=== PATIENT | male | born 1935 | race Caucasian/White ===

== ENCOUNTER 2019-06-14 12:57 | Inpatient (IN) ==
[2019-06-14 14:56] LABS: Basophils % 0.1 % (0.0-0.8); Eosinophils # 0.1 10*3/uL (0.0-0.87); Eosinophils % 0.9 % (0.00-10.9); Hemoglobin 8.8 GM/DL (14.0-18.0); Immature Granulocytes % 0.6 %; Immature Granulocytes Absolute 0.09 #; Lymphocytes # 0.9 10*3/uL (1.4-4.0); Lymphocytes % 6.5 % (21.2-54.2); Mean Corpuscular HGB Conc 32.6 GM/DL (32-36); Mean Corpuscular Volume 84.4 FL (87-102); Neutrophils % 81.9 % (38.7-73.9); Platelet Count 91 T/CUMM (130-400); Red Cell Distribution Width 14.1 % (9.3-17.3); White Blood Count 14.1 T/CUMM (4-12)
[2019-06-14 15:14] LABS: Albumin 3.5 G/DL (3.4-5.0); Bilirubin,Total 0.6 MG/DL (0.2-1.0); Calcium 8.5 MG/DL (8.5-10.1); Osmolality,Calculated 280.4 MOS/KG (273-304); Total Protein 6.4 G/DL (6.4-8.3)
[2019-06-14] MEDS ORDERED: ALBUTEROL/IPRATROPIUM 3 ML NEB RESP TX PRN (15:23)
[2019-06-14] MEDS ORDERED: ONDANSETRON 4 MG/2 ML VIAL IV PRN (15:23)
[2019-06-14] MEDS ORDERED: HYDROmorphone 2 MG/1 ML VIAL IV PRN (15:23)
[2019-06-14] MEDS: KETOROLAC 10 MG TABLET PO SCH ×2 (17:23→21:17)
[2019-06-14] MEDS: LACTATED RINGERS 1,000 ML IV SCH (17:24)
[2019-06-14 17:51] LABS: Platelet Estimate Decreased
[2019-06-14] MEDS: ALBUTEROL/IPRATROPIUM 3 ML NEB RESP TX SCH (20:47)
[2019-06-14] MEDS: DOCUSATE SODIUM 100 MG CAPSULE PO SCH (21:19)
[2019-06-15] MEDS: ALBUTEROL/IPRATROPIUM 3 ML NEB RESP TX SCH ×4 (02:32→19:30)
[2019-06-15] MEDS: LACTATED RINGERS 1,000 ML IV SCH ×3 (02:43→12:46)
[2019-06-15] MEDS: KETOROLAC 10 MG TABLET PO SCH ×4 (02:48→21:02)
[2019-06-15 06:15] LABS: Basophils % 0.3 % (0.0-0.8); Eosinophils # 0.2 10*3/uL (0.0-0.87); Eosinophils % 2.1 % (0.00-10.9); Hematocrit 24.4 VOL% (42.0-52.0); Hemoglobin 7.7 GM/DL (14.0-18.0); Immature Granulocytes % 0.6 %; Immature Granulocytes Absolute 0.06 #; Lymphocytes # 1.2 10*3/uL (1.4-4.0); Mean Corpuscular HGB Conc 31.6 GM/DL (32-36); Mean Corpuscular Volume 85.3 FL (87-102); Mean Platelet Volume 11.9 FL (9.6-12.0); Platelet Count 80 T/CUMM (130-400); Red Blood Count 2.86 MC/CUMM (3.8-5.5); Red Cell Distribution Width 14.1 % (9.3-17.3); White Blood Count 10.8 T/CUMM (4-12)
[2019-06-15 06:33] LABS: Calcium 8.7 MG/DL (8.5-10.1); Osmolality,Calculated 281.2 MOS/KG (273-304)
[2019-06-15 06:48] LABS: Platelet Estimate Decreased
[2019-06-15 06:51] LABS: Anisocytosis 1+
[2019-06-15] MEDS: DOCUSATE SODIUM 100 MG CAPSULE PO SCH ×2 (09:12→21:03)
[2019-06-15] MEDS ORDERED: MELOXICAM 7.5 MG TABLET PO PRN (12:11)
[2019-06-15] MEDS: traZODone 50 MG TABLET PO SCH (21:02)
[2019-06-15] MEDS: ASPIRIN EC 81 MG TABLET PO SCH (21:03)
[2019-06-15] MEDS: GABAPENTIN 100 MG CAPSULE PO SCH (21:03)
[2019-06-15] MEDS: amLODIPine 5 MG TABLET PO SCH (21:03)
[2019-06-15] MEDS: traMADol 50 MG TABLET PO SCH (21:03)
[2019-06-15] MEDS: MAGNESIUM CHLORIDE 64 MG TABLET PO SCH (21:07)
[2019-06-16] MEDS: ALBUTEROL/IPRATROPIUM 3 ML NEB RESP TX SCH ×4 (00:56→20:05)
[2019-06-16] MEDS: KETOROLAC 10 MG TABLET PO SCH ×4 (03:49→21:54)
[2019-06-16] MEDS: ACETAMINOPHEN 325 MG TABLET PO PRN (05:28)
[2019-06-16 05:38] LABS: Basophils % 0.2 % (0.0-0.8); Eosinophils # 0.1 10*3/uL (0.0-0.87); Hematocrit 22.3 VOL% (42.0-52.0); Hemoglobin 7.2 GM/DL (14.0-18.0); Immature Granulocytes % 0.8 %; Immature Granulocytes Absolute 0.09 #; Lymphocytes # 0.5 10*3/uL (1.4-4.0); Lymphocytes % 4.6 % (21.2-54.2); Mean Corpuscular HGB Conc 32.3 GM/DL (32-36); Mean Corpuscular Volume 84.8 FL (87-102); Mean Platelet Volume 11.3 FL (9.6-12.0); Monocytes % 9.5 % (1.7-12.7); Neutrophils % 83.9 % (38.7-73.9); Platelet Count 85 T/CUMM (130-400); Red Blood Count 2.63 MC/CUMM (3.8-5.5); White Blood Count 10.6 T/CUMM (4-12)
[2019-06-16 07:22] LABS: Band Neutrophils 4 % (0-10); Eosinophils 1 % (0-10); Lymphocytes 4 % (20-55); Platelet Estimate Decreased; Segmented Neutrophils 84 % (50-85); Total Cells Counted 100
[2019-06-16] MEDS ORDERED: SODIUM CHLORIDE 0.9% 1,000 ML IV PRN ×2 (07:22→07:31)
[2019-06-16 07:23] LABS: Anisocytosis Slight
[2019-06-16] MEDS ORDERED: ceFAZolin 1,000 MG in SYRINGE 1 EACH IV ONE (07:23)
[2019-06-16] MEDS ORDERED: BUPIVACAINE MPF 0.25% 30 ML VIAL ONE (08:46)
[2019-06-16] MEDS ORDERED: LIDOCAINE 1%/EPI INJ 20 ML VIAL ONE (08:46)
[2019-06-16 09:01] LABS: PT Patient Result 10.4 SECS (9.6-12.2); Partial Thromboplastin Time 28.7 SECS (20.8-36.0)
[2019-06-16] MEDS ORDERED: LIDOCAINE 2% 5 ML VIAL ONE (09:52)
[2019-06-16] MEDS ORDERED: ONDANSETRON 4 MG/2 ML VIAL ONE ×2 (09:52→10:54)
[2019-06-16] MEDS ORDERED: PROPOFOL 200 MG/20 ML VIAL IV ONE (09:52)
[2019-06-16] MEDS ORDERED: fentaNYL 100 MCG/2 ML VIAL ONE (09:52)
[2019-06-16] MEDS ORDERED: HYDROmorphone 2 MG/1 ML VIAL ONE (10:22)
[2019-06-16] MEDS: HYDROmorphone 2 MG/1 ML VIAL IV PRN ×3 (10:25→10:50)
[2019-06-16] MEDS: LACTATED RINGERS 1,000 ML IV SCH ×3 (10:29→18:01)
[2019-06-16] MEDS ORDERED: ONDANSETRON 4 MG/2 ML VIAL IV PRN (10:32)
[2019-06-16] MEDS: SIMVASTATIN 40 MG TABLET PO SCH (13:41)
[2019-06-16] MEDS: GABAPENTIN 300 MG CAPSULE PO SCH ×3 (13:41→23:52)
[2019-06-16] MEDS: LOSARTAN 50 MG TABLET PO SCH (13:41)
[2019-06-16] MEDS: ATENOLOL 25 MG TABLET PO SCH (13:42)
[2019-06-16] MEDS: DOCUSATE SODIUM 100 MG CAPSULE PO SCH ×2 (13:42→21:55)
[2019-06-16] MEDS: SERTRALINE 100 MG TABLET PO SCH (13:42)
[2019-06-16] MEDS: amLODIPine 5 MG TABLET PO SCH ×2 (13:42→22:00)
[2019-06-16] MEDS: FINASTERIDE 5 MG TABLET PO SCH (13:42)
[2019-06-16] MEDS: MAGNESIUM CHLORIDE 64 MG TABLET PO SCH ×2 (13:42→21:57)
[2019-06-16] MEDS: LIDOCAINE 5% PATCH TRANSDERM SCH (14:06)
[2019-06-16] MEDS: traMADol 50 MG TABLET PO SCH ×2 (14:51→21:54)
[2019-06-16] MEDS ORDERED: FUROSEMIDE 100 MG/10 ML VIAL IV ONE (18:39)
[2019-06-16 18:47] LABS: Hematocrit 29.7 VOL% (42.0-52.0); Hemoglobin 9.9 GM/DL (14.0-18.0)
[2019-06-16] MEDS: traZODone 50 MG TABLET PO SCH (21:55)
[2019-06-16] MEDS: GABAPENTIN 100 MG CAPSULE PO SCH (21:55)
[2019-06-16] MEDS: ASPIRIN EC 81 MG TABLET PO SCH (21:55)
[2019-06-17] MEDS: ALBUTEROL/IPRATROPIUM 3 ML NEB RESP TX SCH ×4 (01:01→20:09)
[2019-06-17] MEDS: KETOROLAC 10 MG TABLET PO SCH ×4 (03:43→21:12)
[2019-06-17] MEDS: ACETAMINOPHEN 325 MG TABLET PO PRN (05:25)
[2019-06-17] MEDS: GABAPENTIN 300 MG CAPSULE PO SCH ×4 (05:26→23:07)
[2019-06-17 05:45] LABS: Basophils % 0.2 % (0.0-0.8); Eosinophils # 0.2 10*3/uL (0.0-0.87); Hematocrit 26.6 VOL% (42.0-52.0); Hemoglobin 8.8 GM/DL (14.0-18.0); Immature Granulocytes % 0.6 %; Immature Granulocytes Absolute 0.07 #; Lymphocytes # 0.7 10*3/uL (1.4-4.0); Lymphocytes % 6.4 % (21.2-54.2); Mean Corpuscular HGB Conc 33.1 GM/DL (32-36); Mean Corpuscular Volume 83.9 FL (87-102); Mean Platelet Volume 11.4 FL (9.6-12.0); Monocytes % 8.6 % (1.7-12.7); Neutrophils % 82.2 % (38.7-73.9); Platelet Count 146 T/CUMM (130-400); Red Blood Count 3.17 MC/CUMM (3.8-5.5); Red Cell Distribution Width 14.1 % (9.3-17.3)
[2019-06-17 07:52] LABS: Calcium 8.1 MG/DL (8.5-10.1); Osmolality,Calculated 277.4 MOS/KG (273-304)
[2019-06-17] MEDS: FINASTERIDE 5 MG TABLET PO SCH (10:38)
[2019-06-17] MEDS: MAGNESIUM CHLORIDE 64 MG TABLET PO SCH ×2 (10:38→21:12)
[2019-06-17] MEDS: ATENOLOL 25 MG TABLET PO SCH (10:38)
[2019-06-17] MEDS: amLODIPine 5 MG TABLET PO SCH ×2 (10:39→21:12)
[2019-06-17] MEDS: traMADol 50 MG TABLET PO SCH ×2 (10:39→21:12)
[2019-06-17] MEDS: LOSARTAN 50 MG TABLET PO SCH (10:39)
[2019-06-17] MEDS: SIMVASTATIN 40 MG TABLET PO SCH (10:40)
[2019-06-17] MEDS: SERTRALINE 100 MG TABLET PO SCH (10:40)
[2019-06-17] MEDS: DOCUSATE SODIUM 100 MG CAPSULE PO SCH ×2 (10:40→21:12)
[2019-06-17] MEDS: LANSOPRAZOLE ODT 30 MG TABLET PO SCH (10:41)
[2019-06-17] MEDS: LIDOCAINE 5% PATCH TRANSDERM SCH (10:41)
[2019-06-17] MEDS: traZODone 50 MG TABLET PO SCH (21:12)
[2019-06-17] MEDS: ASPIRIN EC 81 MG TABLET PO SCH (21:12)
[2019-06-17] MEDS: GABAPENTIN 100 MG CAPSULE PO SCH (21:12)
[2019-06-18] MEDS: ALBUTEROL/IPRATROPIUM 3 ML NEB RESP TX SCH ×4 (00:30→19:28)
[2019-06-18] MEDS: KETOROLAC 10 MG TABLET PO SCH ×4 (03:21→21:27)
[2019-06-18] MEDS: GABAPENTIN 300 MG CAPSULE PO SCH ×4 (05:23→23:24)
[2019-06-18 06:08] LABS: Basophils % 0.2 % (0.0-0.8); Eosinophils # 0.3 10*3/uL (0.0-0.87); Eosinophils % 2.3 % (0.00-10.9); Hemoglobin 9.2 GM/DL (14.0-18.0); Immature Granulocytes % 0.7 %; Immature Granulocytes Absolute 0.08 #; Lymphocytes # 0.9 10*3/uL (1.4-4.0); Lymphocytes % 7.7 % (21.2-54.2); Mean Corpuscular HGB Conc 32.9 GM/DL (32-36); Mean Corpuscular Volume 83.3 FL (87-102); Mean Platelet Volume 11.3 FL (9.6-12.0); Monocytes % 11.5 % (1.7-12.7); Neutrophils % 77.6 % (38.7-73.9); Platelet Count 164 T/CUMM (130-400); Red Blood Count 3.36 MC/CUMM (3.8-5.5); Red Cell Distribution Width 13.9 % (9.3-17.3); White Blood Count 12.1 T/CUMM (4-12)
[2019-06-18 06:54] LABS: Calcium 8.6 MG/DL (8.5-10.1); Osmolality,Calculated 271.9 MOS/KG (273-304)
[2019-06-18] MEDS: ACETAMINOPHEN 325 MG TABLET PO PRN ×2 (07:28→14:43)
[2019-06-18] MEDS ORDERED: oxyCODONE/ACETAMINOPHEN 5-325 MG TABLET PO PRN (09:50)
[2019-06-18] MEDS: FINASTERIDE 5 MG TABLET PO SCH (09:55)
[2019-06-18] MEDS: LOSARTAN 50 MG TABLET PO SCH (09:55)
[2019-06-18] MEDS: SIMVASTATIN 40 MG TABLET PO SCH (09:56)
[2019-06-18] MEDS: MAGNESIUM CHLORIDE 64 MG TABLET PO SCH ×2 (09:56→21:27)
[2019-06-18] MEDS: DOCUSATE SODIUM 100 MG CAPSULE PO SCH ×2 (09:56→21:27)
[2019-06-18] MEDS: traMADol 50 MG TABLET PO SCH ×2 (09:57→21:28)
[2019-06-18] MEDS: ATENOLOL 25 MG TABLET PO SCH (09:57)
[2019-06-18] MEDS: SERTRALINE 100 MG TABLET PO SCH (09:57)
[2019-06-18] MEDS: amLODIPine 5 MG TABLET PO SCH ×2 (09:57→21:27)
[2019-06-18] MEDS: LIDOCAINE 5% PATCH TRANSDERM SCH (09:58)
[2019-06-18] MEDS: LANSOPRAZOLE ODT 30 MG TABLET PO SCH (09:58)
[2019-06-18] MEDS ORDERED: TUBERCULIN SKIN TEST 0.1 ML SYRINGE INTRADERM ONE (11:06)
[2019-06-18] MEDS ORDERED: ROPIVACAINE 0.5% 30 ML VIAL NERVEBLOCK ONE (14:20)
[2019-06-18] MEDS ORDERED: TRIAMCINOLONE ACETONIDE 40 MG/1 ML VIAL IM ONE (14:21)
[2019-06-18] MEDS: SODIUM CHLORIDE 0.9% 1,000 ML IV SCH ×2 (14:33→23:39)
[2019-06-18] MEDS: traZODone 50 MG TABLET PO SCH (21:27)
[2019-06-18] MEDS: GABAPENTIN 100 MG CAPSULE PO SCH (21:27)
[2019-06-18] MEDS: ASPIRIN EC 81 MG TABLET PO SCH (21:27)
[2019-06-19] MEDS: ALBUTEROL/IPRATROPIUM 3 ML NEB RESP TX SCH ×4 (01:17→20:02)
[2019-06-19] MEDS: KETOROLAC 10 MG TABLET PO SCH ×2 (03:17→08:58)
[2019-06-19] MEDS: GABAPENTIN 300 MG CAPSULE PO SCH ×4 (05:19→23:36)
[2019-06-19 05:26] LABS: Basophils % 0.1 % (0.0-0.8); Eosinophils % 0.1 % (0.00-10.9); Immature Granulocytes % 0.8 %; Immature Granulocytes Absolute 0.09 #; Lymphocytes # 0.3 10*3/uL (1.4-4.0); Lymphocytes % 2.5 % (21.2-54.2); Mean Corpuscular HGB Conc 33.3 GM/DL (32-36); Mean Corpuscular Volume 83.6 FL (87-102); Mean Platelet Volume 10.8 FL (9.6-12.0); Monocytes % 6.3 % (1.7-12.7); Neutrophils % 90.2 % (38.7-73.9); Platelet Count 175 T/CUMM (130-400); Red Blood Count 3.23 MC/CUMM (3.8-5.5); White Blood Count 11.4 T/CUMM (4-12)
[2019-06-19 05:44] LABS: Calcium 8.3 MG/DL (8.5-10.1); Osmolality,Calculated 280.7 MOS/KG (273-304)
[2019-06-19 06:11] LABS: Lymphocytes 2 % (20-55); Segmented Neutrophils 95 % (50-85); Total Cells Counted 100
[2019-06-19 06:12] LABS: Platelet Estimate Normal
[2019-06-19] MEDS ORDERED: ROPIVACAINE 0.5% 30 ML VIAL NERVEBLOCK ONE (08:17)
[2019-06-19] MEDS ORDERED: TRIAMCINOLONE ACETONIDE 40 MG/1 ML VIAL IM ONE (08:17)
[2019-06-19] MEDS: FINASTERIDE 5 MG TABLET PO SCH (08:56)
[2019-06-19] MEDS: LIDOCAINE 5% PATCH TRANSDERM SCH (08:56)
[2019-06-19] MEDS: DOCUSATE SODIUM 100 MG CAPSULE PO SCH ×2 (08:56→21:11)
[2019-06-19] MEDS: SERTRALINE 100 MG TABLET PO SCH (08:56)
[2019-06-19] MEDS: MAGNESIUM CHLORIDE 64 MG TABLET PO SCH ×2 (08:56→21:10)
[2019-06-19] MEDS: ATENOLOL 25 MG TABLET PO SCH (08:56)
[2019-06-19] MEDS: traMADol 50 MG TABLET PO SCH ×2 (08:56→21:11)
[2019-06-19] MEDS: amLODIPine 5 MG TABLET PO SCH ×2 (08:56→21:11)
[2019-06-19] MEDS: LOSARTAN 50 MG TABLET PO SCH (08:57)
[2019-06-19] MEDS: LANSOPRAZOLE ODT 30 MG TABLET PO SCH (08:57)
[2019-06-19] MEDS: SIMVASTATIN 40 MG TABLET PO SCH (08:57)
[2019-06-19] MEDS: ACETAMINOPHEN 325 MG TABLET PO PRN ×2 (13:07→22:14)
[2019-06-19] MEDS: MAGNESIUM HYDROXIDE SUSP 30 ML UDCUP PO PRN ×2 (13:17→17:54)
[2019-06-19] MEDS: SODIUM CHLORIDE 0.9% 1,000 ML IV SCH ×2 (13:17→23:24)
[2019-06-19] MEDS: ASPIRIN EC 81 MG TABLET PO SCH (21:10)
[2019-06-19] MEDS: traZODone 50 MG TABLET PO SCH (21:10)
[2019-06-19] MEDS: GABAPENTIN 100 MG CAPSULE PO SCH (21:11)
[2019-06-20] MEDS: ALBUTEROL/IPRATROPIUM 3 ML NEB RESP TX SCH ×4 (00:43→18:47)
[2019-06-20 04:23] LABS: Basophils % 0.1 % (0.0-0.8); Eosinophils # 0.1 10*3/uL (0.0-0.87); Eosinophils % 0.5 % (0.00-10.9); Hematocrit 27.6 VOL% (42.0-52.0); Immature Granulocytes % 0.6 %; Immature Granulocytes Absolute 0.07 #; Lymphocytes # 0.5 10*3/uL (1.4-4.0); Lymphocytes % 4.3 % (21.2-54.2); Mean Corpuscular HGB Conc 32.6 GM/DL (32-36); Mean Corpuscular Volume 84.9 FL (87-102); Mean Platelet Volume 10.3 FL (9.6-12.0); Monocytes % 9.5 % (1.7-12.7); Platelet Count 195 T/CUMM (130-400); Red Blood Count 3.25 MC/CUMM (3.8-5.5); White Blood Count 11.9 T/CUMM (4-12)
[2019-06-20 04:40] LABS: Calcium 8.1 MG/DL (8.5-10.1); Osmolality,Calculated 287.5 MOS/KG (273-304)
[2019-06-20 04:44] LABS: Eosinophils 1 % (0-10); Hypochromasia 1+; Lymphocytes 5 % (20-55); Ovalocytes Few; Segmented Neutrophils 86 % (50-85); Total Cells Counted 100
[2019-06-20 04:45] LABS: Microcytosis Slight
[2019-06-20] MEDS: GABAPENTIN 300 MG CAPSULE PO SCH ×4 (05:31→23:08)
[2019-06-20] MEDS: SIMETHICONE CHEW 125 MG TABLET PO PRN ×2 (05:31→17:25)
[2019-06-20] MEDS: ACETAMINOPHEN 325 MG TABLET PO PRN ×2 (07:10→17:25)
[2019-06-20] MEDS ORDERED: BENZOCAINE/MENTHOL LOZENGE 18/BOX PO PRN (07:41)
[2019-06-20] MEDS: DOCUSATE SODIUM 100 MG CAPSULE PO SCH ×2 (08:28→21:52)
[2019-06-20] MEDS: FINASTERIDE 5 MG TABLET PO SCH (08:28)
[2019-06-20] MEDS: SIMVASTATIN 40 MG TABLET PO SCH (08:28)
[2019-06-20] MEDS: MAGNESIUM CHLORIDE 64 MG TABLET PO SCH ×2 (08:28→21:53)
[2019-06-20] MEDS: LOSARTAN 50 MG TABLET PO SCH (08:28)
[2019-06-20] MEDS: traMADol 50 MG TABLET PO SCH ×2 (08:28→21:53)
[2019-06-20] MEDS: SERTRALINE 100 MG TABLET PO SCH (08:28)
[2019-06-20] MEDS: ATENOLOL 25 MG TABLET PO SCH (08:28)
[2019-06-20] MEDS: LIDOCAINE 5% PATCH TRANSDERM SCH (08:29)
[2019-06-20] MEDS: LANSOPRAZOLE ODT 30 MG TABLET PO SCH (08:29)
[2019-06-20] MEDS: amLODIPine 5 MG TABLET PO SCH ×2 (08:30→21:53)
[2019-06-20] MEDS: SODIUM CHLORIDE 0.9% 1,000 ML IV SCH (12:21)
[2019-06-20] MEDS: MAGNESIUM HYDROXIDE SUSP 30 ML UDCUP PO PRN (17:24)
[2019-06-20] MEDS: traZODone 50 MG TABLET PO SCH (21:52)
[2019-06-20] MEDS: carvediloL 6.25 MG TABLET PO SCH (21:52)
[2019-06-20] MEDS: GABAPENTIN 100 MG CAPSULE PO SCH (21:52)
[2019-06-20] MEDS: ASPIRIN EC 81 MG TABLET PO SCH (21:52)
[2019-06-21] MEDS: ALBUTEROL/IPRATROPIUM 3 ML NEB RESP TX SCH ×4 (00:51→19:59)
[2019-06-21] MEDS: GABAPENTIN 300 MG CAPSULE PO SCH ×4 (05:11→23:19)
[2019-06-21] MEDS: ACETAMINOPHEN 325 MG TABLET PO PRN ×3 (06:23→23:19)
[2019-06-21 06:31] LABS: Calcium 8.8 MG/DL (8.5-10.1)
[2019-06-21] MEDS: amLODIPine 5 MG TABLET PO SCH ×2 (09:05→21:31)
[2019-06-21] MEDS: carvediloL 6.25 MG TABLET PO SCH ×2 (09:05→21:31)
[2019-06-21] MEDS: SIMVASTATIN 40 MG TABLET PO SCH (09:05)
[2019-06-21] MEDS: FINASTERIDE 5 MG TABLET PO SCH (09:05)
[2019-06-21] MEDS: DOCUSATE SODIUM 100 MG CAPSULE PO SCH ×2 (09:05→21:30)
[2019-06-21] MEDS: traMADol 50 MG TABLET PO SCH ×2 (09:06→21:31)
[2019-06-21] MEDS: LIDOCAINE 5% PATCH TRANSDERM SCH (09:06)
[2019-06-21] MEDS: LANSOPRAZOLE ODT 30 MG TABLET PO SCH (09:06)
[2019-06-21] MEDS: SERTRALINE 100 MG TABLET PO SCH (09:06)
[2019-06-21] MEDS: MAGNESIUM CHLORIDE 64 MG TABLET PO SCH ×2 (09:06→21:30)
[2019-06-21] MEDS ORDERED: SODIUM POLYSTYRENE SULFATE 15 GM/60 ML BOTTLE PO ONE (13:28)
[2019-06-21] MEDS: guaiFENesin 200 MG/10 ML UDCUP PO PRN (21:29)
[2019-06-21] MEDS: GABAPENTIN 100 MG CAPSULE PO SCH (21:30)
[2019-06-21] MEDS: ASPIRIN EC 81 MG TABLET PO SCH (21:30)
[2019-06-21] MEDS: traZODone 50 MG TABLET PO SCH (21:31)
[2019-06-22] MEDS: ALBUTEROL/IPRATROPIUM 3 ML NEB RESP TX SCH ×4 (01:19→18:54)
[2019-06-22] MEDS: guaiFENesin 200 MG/10 ML UDCUP PO PRN (05:02)
[2019-06-22] MEDS: GABAPENTIN 300 MG CAPSULE PO SCH ×4 (05:05→23:36)
[2019-06-22 05:33] LABS: Basophils % 0.2 % (0.0-0.8); Eosinophils # 0.4 10*3/uL (0.0-0.87); Eosinophils % 2.8 % (0.00-10.9); Hematocrit 28.9 VOL% (42.0-52.0); Hemoglobin 9.5 GM/DL (14.0-18.0); Immature Granulocytes % 1.1 %; Immature Granulocytes Absolute 0.13 #; Lymphocytes # 0.9 10*3/uL (1.4-4.0); Lymphocytes % 6.9 % (21.2-54.2); Mean Corpuscular HGB Conc 32.9 GM/DL (32-36); Mean Corpuscular Volume 84.3 FL (87-102); Mean Platelet Volume 9.7 FL (9.6-12.0); Monocytes % 7.3 % (1.7-12.7); Neutrophils % 81.7 % (38.7-73.9); Platelet Count 225 T/CUMM (130-400); Red Blood Count 3.43 MC/CUMM (3.8-5.5); Red Cell Distribution Width 13.9 % (9.3-17.3); White Blood Count 12.3 T/CUMM (4-12)
[2019-06-22 05:51] LABS: Calcium 8.5 MG/DL (8.5-10.1); Osmolality,Calculated 275.2 MOS/KG (273-304)
[2019-06-22] MEDS: traMADol 50 MG TABLET PO SCH ×2 (08:46→20:33)
[2019-06-22] MEDS: carvediloL 6.25 MG TABLET PO SCH ×2 (08:47→20:33)
[2019-06-22] MEDS: LEVOFLOXACIN INJ 750 MG in PREMIX 1 EACH IV SCH (08:50)
[2019-06-22] MEDS: MAGNESIUM CHLORIDE 64 MG TABLET PO SCH ×2 (10:28→20:32)
[2019-06-22] MEDS: SERTRALINE 100 MG TABLET PO SCH (10:28)
[2019-06-22] MEDS: FINASTERIDE 5 MG TABLET PO SCH (10:28)
[2019-06-22] MEDS: LANSOPRAZOLE ODT 30 MG TABLET PO SCH (10:28)
[2019-06-22] MEDS: SIMVASTATIN 40 MG TABLET PO SCH (10:29)
[2019-06-22] MEDS: amLODIPine 5 MG TABLET PO SCH ×2 (10:29→20:33)
[2019-06-22] MEDS: LIDOCAINE 5% PATCH TRANSDERM SCH (10:29)
[2019-06-22] MEDS: DOCUSATE SODIUM 100 MG CAPSULE PO SCH ×2 (10:29→20:33)
[2019-06-22] MEDS: ACETAMINOPHEN 325 MG TABLET PO PRN ×2 (13:17→19:27)
[2019-06-22] MEDS: traZODone 50 MG TABLET PO SCH (20:32)
[2019-06-22] MEDS: ASPIRIN EC 81 MG TABLET PO SCH (20:33)
[2019-06-22] MEDS: GABAPENTIN 100 MG CAPSULE PO SCH (20:33)
[2019-06-23] MEDS: ALBUTEROL/IPRATROPIUM 3 ML NEB RESP TX SCH ×4 (01:59→20:16)
[2019-06-23] MEDS: ACETAMINOPHEN 325 MG TABLET PO PRN ×4 (02:17→23:39)
[2019-06-23 05:30] LABS: Basophils % 0.1 % (0.0-0.8); Eosinophils # 0.3 10*3/uL (0.0-0.87); Hematocrit 27.9 VOL% (42.0-52.0); Immature Granulocytes % 0.7 %; Lymphocytes # 0.8 10*3/uL (1.4-4.0); Lymphocytes % 5.9 % (21.2-54.2); Mean Corpuscular HGB Conc 32.3 GM/DL (32-36); Mean Corpuscular Volume 86.1 FL (87-102); Mean Platelet Volume 10.3 FL (9.6-12.0); Monocytes % 7.5 % (1.7-12.7); Neutrophils % 83.8 % (38.7-73.9); Platelet Count 242 T/CUMM (130-400); Red Blood Count 3.24 MC/CUMM (3.8-5.5); Red Cell Distribution Width 13.9 % (9.3-17.3); White Blood Count 13.4 T/CUMM (4-12)
[2019-06-23] MEDS: GABAPENTIN 300 MG CAPSULE PO SCH ×4 (05:36→23:39)
[2019-06-23 06:35] LABS: Osmolality,Calculated 277.8 MOS/KG (273-304)
[2019-06-23] MEDS: LEVOFLOXACIN INJ 750 MG in PREMIX 1 EACH IV SCH (08:38)
[2019-06-23] MEDS: carvediloL 6.25 MG TABLET PO SCH ×2 (08:39→21:40)
[2019-06-23] MEDS: LANSOPRAZOLE ODT 30 MG TABLET PO SCH (08:39)
[2019-06-23] MEDS: MAGNESIUM CHLORIDE 64 MG TABLET PO SCH ×2 (08:39→21:41)
[2019-06-23] MEDS: traMADol 50 MG TABLET PO SCH ×2 (08:39→21:41)
[2019-06-23] MEDS: DOCUSATE SODIUM 100 MG CAPSULE PO SCH ×2 (08:39→21:40)
[2019-06-23] MEDS: FINASTERIDE 5 MG TABLET PO SCH (08:39)
[2019-06-23] MEDS: SERTRALINE 100 MG TABLET PO SCH (08:39)
[2019-06-23] MEDS: amLODIPine 5 MG TABLET PO SCH ×2 (08:39→21:41)
[2019-06-23] MEDS: SIMVASTATIN 40 MG TABLET PO SCH (08:39)
[2019-06-23] MEDS: LIDOCAINE 5% PATCH TRANSDERM SCH (08:41)
[2019-06-23] MEDS ORDERED: IBUPROFEN 600 MG TABLET PO ONE (13:30)
[2019-06-23] MEDS: ASPIRIN EC 81 MG TABLET PO SCH (21:40)
[2019-06-23] MEDS: traZODone 50 MG TABLET PO SCH (21:40)
[2019-06-23] MEDS: GABAPENTIN 100 MG CAPSULE PO SCH (21:40)
[2019-06-24] MEDS: ALBUTEROL/IPRATROPIUM 3 ML NEB RESP TX SCH ×3 (00:35→15:03)
[2019-06-24] MEDS: GABAPENTIN 300 MG CAPSULE PO SCH ×2 (05:49→11:10)
[2019-06-24 06:45] LABS: Basophils % 0.1 % (0.0-0.8); Eosinophils # 0.2 10*3/uL (0.0-0.87); Eosinophils % 1.4 % (0.00-10.9); Hematocrit 28.2 VOL% (42.0-52.0); Hemoglobin 9.1 GM/DL (14.0-18.0); Immature Granulocytes Absolute 0.15 #; Lymphocytes # 0.8 10*3/uL (1.4-4.0); Mean Corpuscular HGB Conc 32.3 GM/DL (32-36); Mean Platelet Volume 9.9 FL (9.6-12.0); Monocytes % 7.5 % (1.7-12.7); Platelet Count 252 T/CUMM (130-400); Red Blood Count 3.28 MC/CUMM (3.8-5.5); Red Cell Distribution Width 13.7 % (9.3-17.3); White Blood Count 15.5 T/CUMM (4-12)
[2019-06-24] MEDS: LEVOFLOXACIN INJ 750 MG in PREMIX 1 EACH IV SCH (11:09)
[2019-06-24] MEDS: DOCUSATE SODIUM 100 MG CAPSULE PO SCH (11:09)
[2019-06-24] MEDS: FINASTERIDE 5 MG TABLET PO SCH (11:09)
[2019-06-24] MEDS: SIMVASTATIN 40 MG TABLET PO SCH (11:10)
[2019-06-24] MEDS: MAGNESIUM CHLORIDE 64 MG TABLET PO SCH (11:10)
[2019-06-24] MEDS: amLODIPine 5 MG TABLET PO SCH (11:10)
[2019-06-24] MEDS: carvediloL 6.25 MG TABLET PO SCH (11:10)
[2019-06-24] MEDS: LANSOPRAZOLE ODT 30 MG TABLET PO SCH (11:10)
[2019-06-24] MEDS: SERTRALINE 100 MG TABLET PO SCH (11:10)
[2019-06-24] MEDS: traMADol 50 MG TABLET PO SCH (11:11)
[2019-06-24] MEDS: LIDOCAINE 5% PATCH TRANSDERM SCH (11:12)
[2019-06-24 11:55] VITALS: BP 165/60
[2019-06-24] MEDS: ACETAMINOPHEN 325 MG TABLET PO PRN (12:36)
== END 2019-06-24 16:48 | disposition swing bed (61) | DRG 183 ==
LOC: EDBD → EDUNIT# → N.EDINP 12:57 → N.ED 12:57 → N.EDINP 16:32 → N.3E 16:38
PROVIDERS: ADMIT Surgery; ATTEND Surgery